=== PATIENT | female | born 1990 | race Caucasian/White ===

== ENCOUNTER 2019-07-30 19:52 | Inpatient (IN) ==
[2019-07-30] MEDS ORDERED: OXYTOCIN 30 UNITS/500 ML BAG IV PRN ×2 (20:25→23:15)
[2019-07-30] MEDS ORDERED: fentaNYL citrate 100 MCG/2 ML VIAL ONE (20:36)
[2019-07-30] MEDS ORDERED: BUPIVACAINE 0.25% 30 ML VIAL ONE (20:37)
[2019-07-30] MEDS ORDERED: ePHEDrine sulfate 50 MG/ML AMP ONE (20:37)
[2019-07-30] MEDS ORDERED: fentaNYL 2MCG/ML ROPIV 1.25MG/ML 100 ML BAG EPI ONE (20:37)
--- NOTE | 2019-07-30 20:39 | History & Physical Report ---
Date of Service July 30, 2019 Assessment & Plan (1) Amniotic fluid leakin yo at 39.3 wks with SROM, in active labor, desires epidural for pain VSS Afebrile No medical problems FHR reassuring GBS negative Plan to admit, monitor, IVF, Epidural for pain Anticipate (2) Uterine contractions at greater than 20 weeks of gestation: History of Present Illness Chief Complaint: Leaking of fluid and ctxs Primary Care Provider: NO PCP Patient is a 28 yo at 39.3 wks who felt a gush of leaking at 1840 pm, it has been clear She had irregular ctxs before that and they go closer and regular on the way Now she is breathing and crying with ctxs and desire epidural for pain No VB +FM's Her has been uncomplicated GBS negative Allergies Allergy/AdvReac Type Severity Reaction Status Date / Time No Known Allergies Allergy Unverified 07/30/19 20:00 Home Medications Home Medications Medication Instructions Recorded Confirmed Type 2 tab PO DAILY 07/30/19 07/30/19 History Patient History Medical History [employer] teeth removed Social History Preferred Language: Lithuanian 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 Beliefs That Will Affect Care: None Current Living Situation: Spouse Feels Safe at Home: Yes Safety Concerns: Feels Safe At This Time Smoking Status: Former smoker Hx Alcohol Use: No 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
[2019-07-30 20:51] LABS: Hematocrit (blood only) 34.5 % (37-47); Hemoglobin 11.8 g/dL (12.0-16.0); Mean Corpuscular Hemoglobin 29.7 pg (25-34); Mean Corpuscular Volume 86.9 fL (80-100); Mean Platelet Volume 9.8 fL (7.4-10.4); Platelet Count 263 K/uL (130-400); RDW Coefficient of Variation 12.6 % (11.5-14.5); RDW Standard Deviation 40.3 fL (36.4-46.3); Red Blood Count 3.97 M/uL (4.2-5.4); White Blood Count 10.37 K/uL (4.8-10.8)
[2019-07-30] MEDS ORDERED: OXYTOCIN 30 UNITS/500ML NSS ONE (20:54)
[2019-07-30 20:59] LABS: Mean Corpuscular Hgb Conc 34.2 g/dL (32-36)
[2019-07-30] MEDS: LACTATED RINGER'S 1,000 ML IV PRN ×2 (21:16→21:46)
--- NOTE | 2019-07-30 21:29 | Anesthesiology Consultation ---
Date of Service July 30, 2019 Assessment & Plan Chart Review Chart Review: Acceptable Risk for Labor Epidural Consults Requested none History Height/Weight Height: 5 ft 7 in Weight: 108.862 kg Allergies Allergy/AdvReac Type Severity Reaction Status Date / Time No Known Allergies Allergy Unverified 07/30/19 20:00 Medications Home Medications Medication Instructions Recorded Confirmed Last Taken 2 tab PO DAILY 07/30/19 07/30/19 07/29/19 Active Medications Generic Name Dose Route Start Last Admin Trade Name Freq PRN Reason Stop Dose Admin Lactated Ringer's 1,000 mls @ 150 mls/hr 07/30/19 20:25 07/30/19 21:16 Lr IV 08/01/19 20:24 150 mls/hr .[id number] PRN Administration L&D Protocol Protocol Past Medical History Medical History [place] teeth removed Social History Smoking Status: Former smoker Hx Alcohol Use: No Hx Substance Use: No Physical Exam Vital Signs Last Vital Signs Temp 36.7 C 07/30/19 20:08 Pulse 71 07/30/19 21:28 Resp 20 07/30/19 20:08 BP 121/66 07/30/19 21:28 Pulse Ox 99 07/30/19 21:24 Testing Laboratory Results 07/30/19 20:38
[2019-07-30] MEDS ORDERED: ePHEDrine sulfate 50 MG/ML AMP IV PRN (21:31)
[2019-07-30] MEDS ORDERED: NALOXONE HCL 1 MG in SODIUM CHLORIDE 0.9% 1000ML 1,000 ML IV PRN (21:31)
[2019-07-30] MEDS ORDERED: DiphenhydrAMINE HCL 50 MG/ML VIAL IV PRN (21:31)
[2019-07-30] MEDS ORDERED: fentaNYL 2MCG/ML ROPIV 1.25MG/ML 100 ML BAG EPI PRN (21:31)
[2019-07-30] MEDS ORDERED: NALBUPHINE HCL INJ 10 MG/ML AMP IV PRN (21:31)
[2019-07-30] MEDS ORDERED: NALOXONE HCL 0.4 MG/1 ML VIAL/CARP IV PRN (21:31)
[2019-07-30] MEDS ORDERED: INFLUENZA ADMINISTRATION CHARGE ONE (22:00)
[2019-07-30] MEDS ORDERED: INFLUENZA VIRUS QUAD VACCINE 0.5 ML SYR IM ONE (22:00)
--- NOTE | 2019-07-30 22:29 | Obstetrical Progress Note ---
Date of Service July 30, 2019 Subjective Patient is reevaluated She feels much better, comfortable since epidural No pain Reviewed her NB labs VE; 10/100%/ +2 FHR categ I [place] has not been monitoring ctxs Plan to start pushing Anticipate Results & Data Vital Signs (Past 12 Hours) Vital Signs Temp Pulse Resp BP Pulse Ox 07/30/19 22:24 84 99 07/30/19 22:19 88 98 07/30/19 22:14 83 131/71 99 07/30/19 22:09 78 98 07/30/19 22:04 80 97 07/30/19 21:59 57 L 134/71 98 07/30/19 21:54 61 99 07/30/19 21:49 72 99 07/30/19 21:44 78 130/69 99 07/30/19 21:39 79 97 07/30/19 21:34 76 98 07/30/19 21:29 72 99 07/30/19 21:28 71 121/66 07/30/19 21:26 72 105/62 07/30/19 21:24 67 114/68 99 07/30/19 21:22 68 103/59 L 07/30/19 21:20 58 L 113/55 L 07/30/19 21:19 67 99 07/30/19 21:15 67 114/59 L 07/30/19 21:14 60 98 07/30/19 21:12 80 143/88 H 07/30/19 21:09 78 98 07/30/19 21:06 84 142/87 H 07/30/19 21:04 82 99 07/30/19 20:08 36.7 C 71 20 133/83
[2019-07-30] MEDS ORDERED: SUPERCREAM 0.870% 15 GM JAR EXT PRN (23:15)
[2019-07-30] MEDS ORDERED: BENZOCAINE 20% AER SPR 82.5 GM CAN EXT PRN (23:15)
[2019-07-30] MEDS ORDERED: ACETAMINOPHEN 325 MG TAB PO PRN (23:15)
[2019-07-30] MEDS ORDERED: HYDROCORTISONE ACETATE 25 MG SUPP PR PRN (23:15)
[2019-07-30] MEDS ORDERED: bisacodyL 10 MG SUPP PR PRN (23:15)
[2019-07-30] MEDS ORDERED: OXYCODONE/ACETAMINOPHEN 5mg/325mg TAB PO PRN (23:15)
[2019-07-30] MEDS ORDERED: DIPHTHERIA/TETANUS/PERTUSSIS 0.5 ML SYR/VIAL IM ONE (23:15)
--- NOTE | 2019-07-31 01:16 | Delivery Summary ---
DATE OF OPERATION: 07/30/2019 TIME OF DELIVERY OF BABY: 22:42 p.m. TIME OF DELIVERY OF PLACENTA: 22:45 p.m. DETAILS OF DELIVERY: The patient was found to be fully dilated and desired to push. She pushed through only 3 contractions and delivered the head without difficulty and shoulders came right after the head spontaneously. Baby was handed off to the mother where mouth and nose were suctioned. Cord was clamped x2 and cut at 1 minute delay. Cord blood was obtained and placenta was found to be in the vagina, delivered spontaneous as intact and complete. Uterus was explored, found to be empty. Lower segment was cleared of all clots and debris. Vagina, perineum were checked for lacerations. There was a second-degree perineal laceration in the posterior fourchette. It was confirmed to be second degree with rectal exam. Excellent sphincter tone was noted and the perineal body muscles around the sphincter were held with Allis clamps. Those were repaired to reinforce the sphincter muscle. Mejehe-ih-vzlim stitches were placed with 2-0 Vicryl 2 times and then Gloves were changed and the vaginal mucosa was reapproximated with 2-0 Vicryl in a running fashion, skin in a subcuticular fashion. Excellent hemostasis was achieved. Rectal exam was repeated. Excellent sphincter tone was noted. No sutures were felt. Gloves were changed. Rest of the vagina and perineum were intact. Mom and baby tolerated the procedure well. Sponge, lap, needle count was correct x2. Baby was a viable female infant, Apgars 9/9. EBL was 200 ml. No complications happened and I was present during whole procedure. I attest to the content of the Intraoperative Record and any orders documented therein. Any exceptions are noted below. MTDD
[2019-07-31] MEDS: IBUPROFEN 600 MG TAB PO PRN ×4 (03:42→20:27)
--- NOTE | 2019-07-31 06:15 | Anesthesia Procedure Note ---
Date of Service July 31, 2019 Anesthesia Post Epidural Note Vital Signs Vital Signs: Temp Pulse Resp BP Pulse Ox 37.1 C 56 L 18 112/75 94 07/31/19 03:45 07/31/19 03:45 07/31/19 03:45 07/31/19 03:45 07/30/19 23:05 Pain Intensity Lower Abdomen: Pain Intensity: 0 Notes Mental Status: alert / awake / arousable Nausea / Vomiting: adequately controlled Pain: adequately controlled Airway Patency, RR, SpO2: stable & adequate BP & HR: stable & adequate Hydration State: stable & adequate Neuraxial Anesthesia: was administered and sensory block is resolving Anesthetic Complications: no major complications apparent and Pt Satisfied with anesthetic care Epidural: Removed without complications and With tip intact
[2019-07-31 06:55] LABS: Hematocrit (blood only) 27.8 % (37-47); Hemoglobin 9.9 g/dL (12.0-16.0); Mean Corpuscular Hemoglobin 30.7 pg (25-34); Mean Corpuscular Hgb Conc 35.6 g/dL (32-36); Mean Corpuscular Volume 86.1 fL (80-100); Mean Platelet Volume 9.5 fL (7.4-10.4); Platelet Count 249 K/uL (130-400); RDW Coefficient of Variation 12.8 % (11.5-14.5); RDW Standard Deviation 40.3 fL (36.4-46.3); Red Blood Count 3.23 M/uL (4.2-5.4); White Blood Count 13.32 K/uL (4.8-10.8)
[2019-07-31] MEDS: LACTATED RINGER'S 1,000 ML IV SCH ×2 (07:26→09:16)
[2019-07-31] MEDS: FERROUS SULFATE 325 MG TAB PO SCH (08:07)
[2019-07-31] MEDS: PRENATAL VITAMIN 1 TAB PO SCH (08:07)
[2019-07-31] MEDS: DOCUSATE SODIUM 100 MG CAP PO SCH ×2 (08:07→20:27)
--- NOTE | 2019-07-31 11:12 | Obstetrical Progress Note ---
Date of Service July 31, 2019 Assessment & Plan (1) normal course: PPD #1 pt doing well anticipate disch this evening or tomorrow am Subjective Ambulation: ambulating normally Voiding: no voiding problems Passing Gas:: Yes Diet Tolerance:: regular diet Lochia:: Small Feeding Type:: breast feeding Review of Systems All systems reviewed & are unremarkable except as noted in HPI & below Physical Exam Constitutional WD/WN, vitals as above well developed and well nourished Eyes PERRL, conjunctivae normal, anicteric sclerae Neck trachea midline, no thyromegaly Respiratory normal respiratory effort, lungs clear to auscultation Auscultation: no crackles, no rales and no wheezes Cardiovascular RRR, no murmur, no edema Gastrointestinal (Abdomen) normal bowel sounds, soft, nontender, no hepatosplenomegaly Uterus is below umbilicus Musculoskeletal no cyanosis or clubbing, extremities motor strength 5/5 Skin no rashes, warm and dry Neurologic patellar DTR's 2+ bilat, sensation intact Psychiatric A+Ox3, euthymic affect Genitourinary normal external appearance Results & Data Vital Signs (Past 12 Hours) Vital Signs Temp Pulse Pulse Pulse Resp BP BP 07/31/19 10:40 37 C 71 18 122/72 07/31/19 10:29 37 C 76 17 123/79 07/31/19 07:55 37.1 C 65 17 118/78 07/31/19 03:45 37.1 C 56 L 18 112/75 07/31/19 01:25 37 C 76 18 128/78 07/31/19 01:04 100 H 133/57 L 07/31/19 00:49 85 118/55 L 07/31/19 00:34 88 128/59 L 07/31/19 00:19 79 125/64 07/31/19 00:06 85 122/59 L 07/30/19 23:50 93 H 163/80 H 07/30/19 23:35 71 122/57 L Pulse Ox 07/31/19 10:40 96 07/31/19 10:29 07/31/19 07:55 96 07/31/19 03:45 07/31/19 01:25 07/31/19 01:04 07/31/19 00:49 07/31/19 00:34 07/31/19 00:19 07/31/19 00:06 07/30/19 23:50 07/30/19 23:35
[2019-07-31] MEDS ORDERED: bisacodyL 5 MG TABEC PO SCH (20:00)
[2019-08-01] MEDS: IBUPROFEN 600 MG TAB PO PRN (04:33)
[2019-08-01 06:08] LABS: Hematocrit (blood only) 30.2 % (37-47); Hemoglobin 10.6 g/dL (12.0-16.0)
[2019-08-01] MEDS: PRENATAL VITAMIN 1 TAB PO SCH (08:37)
[2019-08-01] MEDS: FERROUS SULFATE 325 MG TAB PO SCH (08:37)
[2019-08-01] MEDS: DOCUSATE SODIUM 100 MG CAP PO SCH (08:37)
--- NOTE | 2019-08-01 08:52 | Obstetrical Progress Note ---
Date of Service August 01, 2019 Subjective Patient is seen and examined. She feels well, no complaints. Ambulating without dizziness Voiding without difficulty Tolerating regular diet with out N&V Bleeding is minimal No fever/ chills/ CP/ SOB/ N&V/ Leg pain Breast feeding without problems Vital Signs Temp Pulse Pulse Pulse Resp BP BP 07/31/19 23:15 36.5 C 68 18 106/68 07/31/19 19:41 36.9 C 66 18 118/74 07/31/19 15:47 36.5 C 58 L 18 118/76 07/31/19 10:40 37 C 71 71 17 122/72 122/72 07/31/19 10:29 37 C 76 17 123/79 Pulse Ox 07/31/19 23:15 07/31/19 19:41 97 07/31/19 15:47 97 07/31/19 10:40 96 07/31/19 10:29 Lab Results 07/30/19 07/31/19 07/31/19 Range/Units 20:38 06:20 06:20 WBC 10.37 13.32 H (4.8-10.8) K/uL RBC 3.97 L 3.23 L (4.2-5.4) M/uL Hgb 11.8 L 9.9 L (12.0-16.0) g/dL Hct 34.5 L 27.8 L (37-47) % MCV 86.9 86.1 (80-100) fL MCH 29.7 30.7 (25-34) pg MCHC 34.2 35.6 (32-36) g/dL RDW Std Deviation 40.3 40.3 (36.4-46.3) fL RDW Coeff of Danyell 12.6 12.8 (11.5-14.5) % Plt Count 263 249 (130-400) K/uL MPV 9.8 9.5 (7.4-10.4) fL HIV 1&2 Ab/P24 Ag 4thGn (Neg) Blood Type A Negative Antibody Screen NEGATIVE Screen Negative (Negative) 07/31/19 08/01/19 Range/Units 14:04 05:30 WBC (4.8-10.8) K/uL RBC (4.2-5.4) M/uL Hgb 10.6 L (12.0-16.0) g/dL Hct 30.2 L (37-47) % MCV (80-100) fL MCH (25-34) pg MCHC (32-36) g/dL RDW Std Deviation (36.4-46.3) fL RDW Coeff of Danyell (11.5-14.5) % Plt Count (130-400) K/uL MPV (7.4-10.4) fL HIV 1&2 Ab/P24 Ag 4thGn Neg (Neg) Blood Type Antibody Screen Screen (Negative) PE: General: Alert, orientedx3, NAD Abd: soft, NT, fundus firm, below Umbilicus Perineum intact, Lochia rubra minimal Ext; NT, no edema AP: 28 yo s/p , ppd# 2 VSS Afebrile doing well Continue routine care All questions were answered D/C home , f/u in office Results & Data Vital Signs (Past 12 Hours) Vital Signs Temp Pulse Resp BP 07/31/19 23:15 36.5 C 68 18 106/68
== END 2019-08-01 12:00 | disposition home or self-care (01) | DRG 807 ==
LOC: OPB 19:52 → 4S1 19:56 → 4S2 07-31 01:20